=== PATIENT | male | born 1960 | race Caucasian/White ===

== ENCOUNTER 2020-02-03 13:02 | Outpatient (CLI) | payer OTHER ==
--- NOTE | 2020-02-03 14:24 | MRI ---
MRI Cervical spine without contrast: HISTORY: Neck Pain COMPARISON: None FINDINGS: The craniocervical junction is unremarkable. Focal areas of hyperintense signal intensity is seen within the intramedullary portion of the spinal cord along the great matter tracts and localized to the C6-7 level which is has appearance suggesting cord infarction of indeterminate age. However, spinal cord injury is a possibility. There is narrowing of the central spinal canal at this level with flattening of the spinal cord due to disc osteophyte complex. Paravertebral soft tissues have a normal appearance and normal signal intensity. A rounded area of increased T1 and T2-weighted signal intensity is seen in the T1 vertebral body rose uring 1.3 cm most compatible with a hemangioma. Multilevel degenerative changes are seen throughout the cervical spine. C1-2:No significant stenosis. C2-3: Minimal disc osteophyte complex and facet hypertrophic changes. Slight effacement of ventral li barachnoid space is present. Mild bilateral neural foraminal narrowing is present greater on the right. C3-4: Broad-based disc osteophyte complex is present in addition to uncinate process hypertrophy. Fin dings result in mild narrowing of the central spinal canal with flattening of the anterior aspect of the spinal cord. Severe bilateral neural foraminal narrowing is present greater on the right. C4-5: Broad-based disc osteophyte complex is present with mild facet degenerative changes. Findings r esult in mild to moderate central canal narrowing with severe left and moderate to severe right-sided neural foraminal narrowing. C5-6: There is a mild broad-based disc osteophyte complex which narrows the ventral subarachnoid spac e and slight flattening of the anterior aspect of the spinal cord. Moderate to severe bilateral neural foraminal narrowing is present greater on the left. C6-7: Loss of intervertebral disc height. Broad-based disc osteophyte complex is present. Findings re sult in moderate to severe narrowing of the central spinal canal. There is flattening of the spinal cord. Signal abnormality in the spinal cord is present as described above. Severe bilateral neural fo raminal narrowing is evident. C7-T1: There is no disc bulge or disc herniation. The central spinal canal and neural foramina are pa tent. IMPRESSION: 1. Multilevel degenerative changes with broad-based disc osteophyte complexes at multiple levels resu lting in moderate central canal narrowing at the C4-5 level and moderate to severe narrowing of the central canal at the C6-7 level. Moderate and severe degrees of bilateral neural foraminal narrowing is seen at multiple levels as described above. 2. Abnormal signal intensity localized in the intramedullary portion of the cervical spinal cord carroll g the ji matter tracts at the C6-7 level which is at level of moderate to severe narrowing of the central spinal canal secondary to a broad-based disc osteophyte complex. The MRI findings are suggest yolanda of spinal cord infarction of indeterminate age versus prior spinal cord injury.
--- NOTE | 2020-02-03 14:29 | MRI ---
EXAM: MRI Lumbar Spine WO Con PROVIDED CLINICAL HISTORY: Lumbar radiculopathy COMPARISON: None FINDINGS: 5 lumbar vertebral bodies are assumed. Lumbar alignment appears normal. Vertebral body heights appear preserved. No focal concerning regional marrow signal abnormality apparent. Conus medullaris is normal in signal and terminates at an appropriate level. Left renal T2 hyperintensity is demonstrated , incompletely characterized on the basis of this study but statistically reflecting a cyst. At T12-L1, there is a broad-based disc bulge with superimposed small central disc protrusion. There i s effacement of the ventral subarachnoid space. No significant foraminal narrowing. At L1-2, there is no significant central canal or foraminal narrowing apparent. At L2-3, there is no significant central canal or foraminal narrowing apparent. At L3-4, there is no significant central canal or foraminal narrowing apparent. Mild bilateral facet arthritis. At L4-5, there is bilateral facet arthritis and a broad-based disc bulge producing mild bilateral for aminal narrowing. At L5-S1, there is a broad-based disc bulge and bilateral facet arthritis. There is mild left foramin al narrowing. There is no significant central canal stenosis apparent. IMPRESSION: Lumbar disc and facet degenerative change as described.
== END 2020-02-03 13:03 | disposition home or self-care (01) ==
LOC: TBSIIMAG 13:02
PROVIDERS: ATTEND Neurological Surgery
DX: M54.2 Cervicalgia (principal); M47.26 Other spondylosis with radiculopathy, lumbar region; M51.16 Intervertebral disc disorders with radiculopathy, lumbar region; M47.812 Spondylosis without myelopathy or radiculopathy, cervical region; M25.78 Osteophyte, vertebrae; M48.02 Spinal stenosis, cervical region; R93.7 Abnormal findings on diagnostic imaging of other parts of musculoskeletal system
CPT/HCPCS: 72141; 72148